=== PATIENT | female | born 1975 | race Caucasian/White ===

== ENCOUNTER 2018-08-24 13:17 | Emergency (ER) | payer BC ==
[2018-08-24] MEDS: DEXAMETHASONE 2 MG TAB PO (14:24)
[2018-08-24] MEDS ORDERED: DEXAMETHASONE (1 MG/ML PO SYG) PO (14:30)
[2018-08-24] MEDS ORDERED: DEXAMETHASONE 10 MG/ML 1 ML INJ IM (14:30)
== END 2018-08-24 14:41 | disposition home or self-care (01) ==
LOC: FTE 13:17
DX: R21 Rash and other nonspecific skin eruption (principal); F17.210 Nicotine dependence, cigarettes, uncomplicated
CPT/HCPCS: 99283